=== PATIENT | male | born 1980 | race Two or more races ===

== ENCOUNTER 2018-05-19 21:22 | Emergency (ER) | payer OTHER ==
[~2018-05-19] VITALS: Ht 175.3 cm; Wt 94.3 kg
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
--- NOTE | 2018-05-19 21:42 | NUR ---
Dr. Piotr GUZMAN MD at bedside for MSE.
[2018-05-19] MEDS ORDERED: ONDANSETRON ODT 4 MG TAB.RAPDIS SL ONE (21:45)
[2018-05-19] MEDS ORDERED: HYDROCODONE/APAP 10-325 MG TABLET PO ONE (21:45)
[2018-05-19] MEDS ORDERED: ONDANSETRON ODT 4 MG TAB.RAPDIS ONE (21:56)
[2018-05-19] MEDS ORDERED: HYDROCODONE/APAP 10-325 MG TABLET ONE (21:57)
--- NOTE | 2018-05-19 23:00 | NUR ---
Patient discharged to home in stable conditon. Written and verbal after care instructions given. Patient verbalizes understanding of instructions. Pt ambulated out of ER in steady gait with girlfriend. All belongings with pt. VSDamien. NAD noted. Pt states he has his brother to drive them home. Pt states pain medication effective.
[2018-05-19 23:02] VITALS: BP 126/74
== END 2018-05-19 23:03 | disposition home or self-care (01) ==
LOC: ER 21:24
DX: S29.012A Strain of muscle and tendon of back wall of thorax, initial encounter (principal); V49.9XXA Car occupant (driver) (passenger) injured in unspecified traffic accident, initial encounter; Y93.89 Activity, other specified; Y92.89 Other specified places as the place of occurrence of the external cause; Y99.8 Other external cause status
CPT/HCPCS: 72072; A4663; Q0162